=== PATIENT | male | born 1945 | race Caucasian/White ===

== ENCOUNTER → 2018-10-03 08:05 | Outpatient (CLI) | payer MEDICARE, SELFPAY ==
--- NOTE | 2018-10-03 08:10 | RAD_ITS ---
STUDY: AIR-CONTRAST UPPER GI STUDY REASON FOR EXAM: Male, 72 years old. Vomiting FLUOROSCOPY TIME (if supplied): (0:29) minutes/seconds. 22 images. TECHNIQUE: Barium pill swallow with sips of water is performed at the beginning of the study without difficulty. Multiple barium swallows were performed under fluoroscopic monitoring. Multiple views of the esophagus, the stomach and the duodenum were performed. COMPARISON: None. FINDINGS: The esophagus appears normal in size and shape it shows unremarkable mucosal pattern. There is small intermittent hiatal hernia with gastroesophageal reflux up to the katerine. The stomach is normal in size shape and position the gastric mucosal folds are unremarkable. The duodenum and bulb and duodenal loop are unremarkable. The duodenal jejunal junction is in normal anatomic position to the left of the vertebral body of T12. IMPRESSION: There is small intermittent hiatal hernia with gastroesophageal reflux up to the katerine. Electronically Signed: Suzie Hilario, at 10:05 EDT Tel , Service support , STUDY: AIR-CONTRAST ESOPHAGRAM STUDY REASON FOR EXAM: Male, 72 years old. DYSPHAGIA WITH PILLS FOR COUPLE YEARS FLUOROSCOPY TIME (if supplied): (0:20) minutes/seconds, 22 images. 49 TOTAL FLUORO SEC, 36.2 mGy, 22 FLUORO IMAGES TECHNIQUE: Barium pill swallow with sips of water is performed at the beginning of the study without difficulty. Multiple barium swallows were performed under fluoroscopic monitoring. Multiple views of the esophagus, the upper stomach were performed. COMPARISON: None. FINDINGS: Barium pill swallow with sips of water is performed at the beginning of the study without difficulty. The esophagus appears normal in size and shape it shows unremarkable mucosal pattern. There is small intermittent hiatal hernia with gastroesophageal reflux up to the katerine. RAD/Upper GI w/BA Swallow IMPRESSION: There is small intermittent hiatal hernia with gastroesophageal reflux up to the katerine. Electronically Signed: Suzie Hilario, at 10:07 EDT Tel , Service support ,
== END ==
PROVIDERS: Family Provider Family Medicine; PCP Family Medicine; Referring Provider Family Medicine; Visit Provider Family Medicine
DX: R13.10 Dysphagia, unspecified (principal)
CPT/HCPCS: 74246